=== PATIENT | male | born 1985 | race African-American/Black ===

== ENCOUNTER 2020-10-09 18:32 | Emergency (ER) | payer SELFPAY ==
[~2020-10-09] VITALS: Ht 185.4 cm; Wt 120.0 kg
[2020-10-09 19:03] VITALS: BP 163/98
--- NOTE | 2020-10-09 19:58 | ED.ADGEN ---
General Adult EDM: Chief Complaint: PSYCH EVALUATION HPI: HPI: Patient is a 35-year-old male who presents to the emergency room stating that he is hearing music in his head and seeing lights and colors. He states this started 2 days ago and has been constant since then. He has never had this previously. He states he went to [facility] for the same symptoms and they recommended that he go to [facility]. Patient states that he feels like he needs inpatient treatment. He has never had inpatient treatment previously. He does not know why he feels that he needs it. History is difficult to obtain. He denies any suicidal or homicidal ideations. He denies hearing any voices. He denies seeing any people or demons. Review of Systems: Review of Systems: Complete ROS is negative unless otherwise documented in HPI Physical Exam: PE: General: Awake, alert, NAD. Well Nourished, well hydrated. Cooperative HEENT: Atraumatic, EOMI, PERRL, airway patent, moist oral mucosa Neck: Supple, trachea midline Respiratory: CTA bilaterally, normal effort, no wheezing/crackles CV: RRR, no murmur, cap refill <2 GI: Soft, nondistended, nontender, no masses MSK: No obvious deformities Skin: Warm, dry, intact Neuro: A&O x3, speech NL, sensory and motor grossly intact, no focal deficits Psych: Flat affect, calm, not homicidal, not suicidal EKG: EKG: [] Heart Score: Risk Factors: Risk Factors: DM, Current or recent (<one month) smoker, HTN, HLP, family history of CAD, obesity. Risk Scores: Score 0 - 3: 2.5% MACE over next 6 weeks - Discharge Home Score 4 - 6: 20.3% MACE over next 6 weeks - Admit for Clinical Observation Score 7 - 10: 72.7% MACE over next 6 weeks - Early Invasive Strategies Radiology/Procedures: Radiology/Procedures: [] Course & Med Decision Making: Course & Med Decision Making Pertinent Labs and Imaging studies reviewed. (See chart for details) Patient is a 35-year-old male who presents to the emergency room complaining of hallucinations. Patient is not hearing any voices. He is not suicidal or homicidal. Patient does not appear to be a harm to himself or others. At this time he does not meet inpatient criteria. PAT team was initially consulted for possible RSI. Patient has requested to leave AGAINST MEDICAL ADVICE. I have discussed the benefits of staying for a full work up and the patient would like to leave. I discussed the risks of leaving including but not limited to , permenant end-organ damage, worsening of condition and patient stated understan jami. Patient signed out against medical advice. Dragon Disclaimer: Dragon Disclaimer: This electronic medical record was generated, in whole or in part, using a voice recognition dictation system. Departure Departure Impression: Primary Impression: Hallucinations Disposition: 07 AMA/ELOPED/LWBS Condition: STABLE Referrals: NO PCP (PCP) SANDRO BAI MD Oct 09, 2020 19:58
== END 2020-10-09 19:59 | disposition left against medical advice (07) ==
LOC: ER 18:32
DX: R44.3 Hallucinations, unspecified (principal)
CPT/HCPCS: 99281

== ENCOUNTER 2020-10-15 04:54 | Emergency (ER) | payer SELFPAY ==
[~2020-10-15] VITALS: Ht 182.9 cm; Wt 95.0 kg
[2020-10-15 05:00] VITALS: BP 184/115
--- NOTE | 2020-10-15 05:15 | ED.ADGEN ---
Past Medical History Past Medical History: No Pertinent History Additional Past Medical Histor: poor historian. denies psych dx Past Surgical History: No Surgical History Smoking Status: Current Every Day Smoker Alcohol Use: None General Adult EDM: Chief Complaint: LOWER EXT PAIN HPI: HPI: Patient is a 35-year-old male who presents to the emergency room complaining of kidney pain and leg and back pain. Patient states that he has had leg and back pain for months after a fall from standing. Patient is a very poor historian and it is a difficult to obtain history. He denies any new trauma. He denies any difficulty with walking or numbness in his arms or legs. Review of Systems: Review of Systems: Complete ROS is negative unless otherwise documented in HPI Current Medications: Current Medications Medications (Trade) Dose Ordered Sig/Ike Start Time Stop Time Status Last Admin Dose Admin Acetaminophen (Tylenol) 1,000 mg 1X ONCE 10/15/20 06:00 10/15/20 06:01 DC 10/15/20 05:57 1,000 MG Allergies: Allergies: Allergies Coded Allergies Type Severity Reaction Last Updated Verified No Known Drug Allergies 10/09/20 No Physical Exam: PE: General: Awake, alert, NAD. Well Nourished, well hydrated. Cooperative HEENT: Atraumatic, EOMI, PERRL, airway patent, moist oral mucosa Neck: Supple, trachea midline Respiratory: CTA bilaterally, normal effort, no wheezing/crackles CV: RRR, no murmur, cap refill <2 GI: Soft, nondistended, nontender, no masses MSK: No obvious deformities Skin: Warm, dry, intact Neuro: A&O x3, speech NL, sensory and motor grossly intact, no focal deficits Psych: Flat affect, not suicidal or homicidal Current Patient Data: Labs: Laboratory Tests Test 10/15/20 05:10 Urine Collection Type Unknown Urine Color Yellow Urine Clarity Clear Urine pH 5.5 (<5.0-8.0) Urine Specific [place] >=1.030 (1.000-1.030) Urine Protein Negative mg/dL (NEG-TRACE) Urine Glucose (UA) Negative mg/dL (NEG) Urine Ketones (Stick) Negative mg/dL (NEG) Urine Blood Negative (NEG) Urine Nitrite Negative (NEG) Urine Bilirubin Negative (NEG) Urine Urobilinogen Dipstick 0.2 mg/dL (0.2 mg/dL) Urine Leukocyte Esterase Negative (NEG) Urine RBC 0 /HPF (0-2) Urine WBC 1-4 /HPF (0-4) Urine Squamous Epithelial Cells Mod /LPF Urine Bacteria 0 /HPF (0-FEW) Urine Mucus Mod /LPF Urine Opiates Screen Neg (NEG) Urine Methadone Screen Neg (NEG) Urine Barbiturates Neg (NEG) Urine Phencyclidine Screen Neg (NEG) Urine Amphetamine/Methamphetamine Neg (NEG) Urine Benzodiazepines Screen Neg (NEG) Urine Cocaine Screen Neg (NEG) Urine Cannabinoids Screen Neg (NEG) Urine Ethyl Alcohol Neg (NEG) Vital Signs: Vital Signs Date Time Temp Pulse Resp B/P (MAP) Pulse Ox O2 Delivery O2 Flow Rate FiO2 10/15/20 05:00 98.2 95 20 184/115 (138) 100 Room Air 98.2 EKG: EKG: [] Heart Score: Risk Factors: Risk Factors: DM, Current or recent (<one month) smoker, HTN, HLP, family history of CAD, obesity. Risk Scores: Score 0 - 3: 2.5% MACE over next 6 weeks - Discharge Home Score 4 - 6: 20.3% MACE over next 6 weeks - Admit for Clinical Observation Score 7 - 10: 72.7% MACE over next 6 weeks - Early Invasive Strategies Radiology/Procedures: Radiology/Procedures: [] Course & Med Decision Making: Course & Med Decision Making Pertinent Labs and Imaging studies reviewed. (See chart for details) Patient is a 35-year-old male who presents to the emergency room complaining of kidney pain and ongoing pain in his leg and back from a fall months prior to arrival. Patient has a normal gait. He does have a flat affect. I have evaluated the patient recently for hearing music in his head. Patient states he still staying with his mother. She denies hearing any kind of voices or seeing anything. Denies any homicidal or suicidal ideations. UA will be ordered to evaluate for UTI. UA is negative. Patient's test results and vitals while in the ED were fully reviewed and discussed with the patient. Patient is stable and at this time does not need admission to the hospital. We have discussed strict return precautions and the importance of following up with their Primary Care Physician. Patient stated understanding and was given an opportunity to ask any questions. Patient is in agreement with plan. Dragon Disclaimer: Dragon Disclaimer: This electronic medical record was generated, in whole or in part, using a voice recognition dictation system. Departure Departure Impression: Primary Impression: Back pain Additional Impression: Leg pain Disposition: 01 DC HOME SELF CARE/HOMELESS Condition: STABLE Referrals: NO PCP (PCP) Patient Instructions: Back Pain, Adult Problem Qualifiers SANDRO BAI MD Oct 15, 2020 05:15
[2020-10-15 05:18] LABS: BILIRUBIN,URINE NEGATIVE (NEG); CLARITY,URINE CLEAR; COLOR,URINE YELLOW; NITRITE,URINE NEGATIVE (NEG); PH,URINE 5.5 (<5.0-8.0); PROTEIN,URINE NEGATIVE (NEG-TRACE); UROBILINOGEN,URINE 0.2 mg/dL (0.2 mg/dL)
[2020-10-15 05:25] LABS: BACTERIA,URINE 0 /HPF (0-FEW); RBC,URINE 0 /HPF (0-2)
[2020-10-15] MEDS ORDERED: ACETAMINOPHEN 500 MG TABLET PO ONE (06:00)
[2020-10-15 07:04] LABS: AMPHETAMINE/METHAMPHETAMINE NEG (NEG); BARBITURATES NEG (NEG); BENZODIAZEPINES NEG (NEG); CANNABINOIDS NEG (NEG); COCAINE NEG (NEG); METHADONE NEG (NEG); OPIATES NEG (NEG); PHENCYCLIDINE NEG (NEG)
== END 2020-10-15 06:20 | disposition home or self-care (01) ==
LOC: ER 04:54
DX: M54.5 Low back pain (principal); M79.605 Pain in left leg; F17.200 Nicotine dependence, unspecified, uncomplicated
CPT/HCPCS: 80307; 81001; 99284